=== PATIENT | male | born 1990 ===

== ENCOUNTER 2019-01-05 19:32 | Emergency (ER) | payer SELFPAY ==
[~2019-01-05 19:32] MED LIST: ISOVUE-370 76%-LOCM 1 ML ONE
[2019-01-05] MEDS ORDERED: Morphine 4 MG/ML VIAL ONE (21:26)
[2019-01-05] MEDS ORDERED: Ketorolac Tromethamine 60 MG/2 ML VIAL ONE (21:26)
[2019-01-05 21:33] LABS: #Eosinphils 0.2 thou/uL (0.0-0.7); #Lymphocytes 2.2 thou/uL (1.20-3.40); #Monocytes 0.4 thou/uL (0.11-0.59); #Neutrophils 4.6 thou/uL (1.40-6.50); %Eosinophils 3.3 % (0.0-10.0); %Lymphocytes 29.3 % (21.0-51.0); %Monocytes 5.5 % (0.0-10.0); %Neutrophils 61.9 % (42.0-75.0); Hemoglobin 15.7 g/dL (14.0-18.0); Mean Corpuscular HGB CONC 34.1 g/dL (32.0-36.0); Mean Corpuscular Hemoglobin 31.5 pg (27.0-31.0); Mean Corpuscular Volume 92.3 fL (78.0-98.0); Platelet Count 211 thou/uL (130-400); RBC Distribution Width 11.8 % (11.5-14.5); White Blood Cell (WBC) Count 7.4 thou/uL (4.8-10.8)
--- NOTE | 2019-01-05 21:33 | RAD ---
Exam:4 views left knee HISTORY: Fall. Pain. COMPARISON: None FINDINGS: Joint spaces are preserved. No joint effusion. No fracture. No malalignment. IMPRESSION: No fracture.
--- NOTE | 2019-01-05 21:34 | RAD ---
Exam: Chest one view HISTORY:Trauma. Chest pain. Comparison: None. FINDINGS: Cardiac silhouette: Normal Pulmonary vessels: Normal Costophrenic angles: Clear LUNGS: No masses or consolidation. Lung volumes are diminished, likely due to a poor inspiratory effo rt. Pneumothorax: No pneumothorax on this supine projection. Osseous abnormalities: None IMPRESSION: No acute cardiopulmonary process.
[2019-01-05 21:57] LABS: ALT (SGPT) 28 U/L (8-55); AST (SGOT) 25 U/L (5-34); Albumin 4.5 g/dL (3.5-5.0); Alkaline Phosphatase 67 U/L (40-150); Anion Gap 14 mmol/L (10-20); BUN (Urea Nitrogen) 14 mg/dL (8.9-20.6); Bilirubin, Total 1.1 mg/dL (0.2-1.2); Calc. Creatinine Clearance 0 mL/min (70-130); Calcium 9.3 mg/dL (7.8-10.44); Carbon Dioxide 26 mmol/L (22-29); Chloride 104 mmol/L (98-107); Estimated GFR-MDRD Greater than 90; Globulin 3.1 g/dL (2.4-3.5); Glucose 96 mg/dL (70-105); Potassium 3.7 mmol/L (3.5-5.1); Protein, Total 7.6 g/dL (6.0-8.3); Sodium 140 mmol/L (136-145)
--- NOTE | 2019-01-05 22:03 | CT ---
Exam: Abdomen CT with contrast Pelvic CT with contrast Limited CT of the lumbar spine HISTORY: Trauma. Back pain FINDINGS: Abdomen CT: Dependent atelectatic changes. Normal heart size. No significant pericardial fluid. Visualized aorta has a normal caliber. Unremarkable portal vein and gallbladder. Appropriate enhancement of the liver, spleen, pancreas and adrenal glands. No gastrohepatic, retrocrural or periportal lymphadenopathy. No mesenteric mass, lymphadenopathy, free air or free fluid. Limited evaluation of the alimentary canal. No evidence of bowel obstruction. There is symmetric enhancement of the kidneys. No perinephric fat stranding. There is symmetric excre tion without filling defect. No evidence of contrast extravasation from the collecting system. Visualized ureters are unremarkable. No paraspinal masses or hematoma. CT PELVIS: No mass, lymphadenopathy, free air or free fluid. Osseous structures: Visualized ribs and bony pelvis are intact. Limited CT of the lumbar spine: Vertebral body height is maintained. There is no fracture or malalignment. IMPRESSION: No posttraumatic sequelae in the abdomen or pelvis. Results study discussed with Dr. Oneil 01/05/2019 at 10:02 PM Code CR Transcribed Date/Time: 01/05/2019 10:17 PM
[2019-01-05 22:36] LABS: Bilirubin Negative (Negative); Blood, Urine Negative (Negative); Clarity Clear (Clear); Glucose, Urine (Dipstick) Normal (Negative); Leukocyte Negative Leu/uL (Negative); Nitrite Negative (Negative); Protein, Urine (Dipstick) 50 mg/dL (Neg-Trace); RBC/HPF 0-3 HPF (0-3); Squamous Epithelial 0-3 HPF (0-3); Urobilinogen 6 mg/dL (Less than 2); WBC/HPF 0-3 HPF (0-3)
== END 2019-01-05 23:14 | disposition home or self-care (01) ==
LOC: ERS 19:32
DX: S30.0XXA Contusion of lower back and pelvis, initial encounter (principal); S80.02XA Contusion of left knee, initial encounter; V09.20XA Pedestrian injured in traffic accident involving unspecified motor vehicles, initial encounter
CPT/HCPCS: 71045; 74177; 80053; 81003; 81015; 85025; 94760; 96361; 96374; 96375; G0390; J1885; J2270; Q9966